=== PATIENT | male | born 1960 | race African-American/Black ===

== ENCOUNTER 2020-11-16 20:00 | Inpatient (IN) | payer MEDICAID ==
[~2020-11-16] VITALS: Ht 188 cm; Wt 122.5 kg
[2020-11-16 20:02] VITALS: BP 146/70
[2020-11-16] MEDS ORDERED: HUMALOG100 UNIT/1 SUBQ (20:09)
[2020-11-16] MEDS ORDERED: HTN MED (20:09)
[2020-11-16] MEDS ORDERED: LANTUS SUBQ (20:09)
[2020-11-16] MEDS ORDERED: CARVEDILOL25 MG PO (20:09)
[2020-11-16] MEDS ORDERED: GABAPENTIN300 MG/6 M (20:10)
--- NOTE | 2020-11-16 21:08 | NUR ---
RECIEVED CALL FROM [facility] OF [facility] PRESS OPERATOR NATHAN. PT GAVE PERMISSION FOR US TO SPEAK WITH HER. INFORMED NATHAN THAT PT HAD JUST GOTTEN HERE AND WE DIDNT HAVE ANY TEST RESULTS YET. SHE STATED SHE WOULD CALL BACK
[2020-11-16 21:40] LABS: CALCIUM 8.9 mg/dL (8.5-10.1); POTASSIUM 4.3 mmol/L (3.5-5.1)
[2020-11-16 21:45] LABS: ALBUMIN 2.1 g/dL (3.4-5.0); TOTAL BILIRUBIN 0.8 mg/dL (<0.1-1.0); TOTAL PROTEIN 8.1 g/dL (6.4-8.2)
[2020-11-17 00:21] LABS: MCV 89.9 fL (80.0-100.0); NUCLEATED RBCS 0 /100WBC; RDW-CV 13.7 % (10.5-14.5)
[2020-11-17 00:25] LABS: HEMATOCRIT 36.6 % (42.0-52.0); HEMOGLOBIN 12.2 gm/dL (14.0-18.0); MCHC 33.4 g/dL (28.0-37.0); MPV 8.6 fl. (7.2-11.1); PLATELET COUNT* 356 thou/uL (150-400); RBC 4.08 mil/uL (4.50-6.00)
[2020-11-17 00:45] VITALS: BP 139/54
[2020-11-17 01:20] VITALS: BP 148/63
[2020-11-17 01:53] LABS: ABSOLUTE BASOPHILS 0.4 thou/uL (0.0-0.2); ABSOLUTE LYMPHOCYTES 1.6 thou/uL (0.8-5.3); ABSOLUTE MONOCYTES 1.8 thou/uL (0.0-1.2); ABSOLUTE NEUTROPHILS 16.2 thou/uL (1.6-8.1)
[2020-11-17 01:54] LABS: PLATELET ESTIMATE ADEQUATE
--- NOTE | 2020-11-17 04:10 | NUR ---
PT ADMITTED TO FLOOR AT 0054. UPON ARRIVAL PT WAS VERY UPSET AND YELLING THAT HIS PAIN HAD NOT BEEN ADDRESSED AND THAT HIS PAIN WAS 10/10, PT REFUSED TECH TO TAKE VITAL SIGNS, AND STATED HE WAS LEAVING. PHYSICIAN WAS CONTACTED AND ORDER WAS GIVEN FOR [facility]. PT WAS ON PHONE, WAS ANGRY AND CONTINUED YELLING. SECUTIRY WAS CALLED. WHEN THE PATIENT SAW SECURITY HE STARTED ASSUSING [facility] STAFF OF BEING RACIST. MANAGER MONITORING WAS NOTIFED. AT APPROX 0214 THE PT LEFT THE FLOOR AMA, PT REFUSED TO SIGN AMA PAPERWORK. PT SCOOTED HIMSELF ON THE FLOOR OUT THE DOOR (REFUSED WHEELCHAIR) WITH SECURITY AND THE HOUSE SUPERVIOR MONITORING TO ENSURE SAFETY. PT REFUSED TO SIGN AMA PAPERWORK.
== END 2020-11-17 03:00 | disposition left against medical advice (07) | DRG 603 ==
LOC: M.ERS 20:00 → M.TBA-ER 21:07 → M.ORTHSURG 11-17 00:54
PROVIDERS: Physician Assistant; ADMIT Internal Medicine; ATTEND Internal Medicine
DX: L03.116 Cellulitis of left lower limb (principal); I10 Essential (primary) hypertension; E11.40 Type 2 diabetes mellitus with diabetic neuropathy, unspecified; F12.90 Cannabis use, unspecified, uncomplicated; Z20.822 Contact with and (suspected) exposure to COVID-19; Z53.29 Procedure and treatment not carried out because of patient's decision for other reasons; L08.9 Local infection of the skin and subcutaneous tissue, unspecified; Z89.511 Acquired absence of right leg below knee